=== PATIENT | male | born 1965 | race Caucasian/White ===

== ENCOUNTER 2016-09-23 08:18 | Inpatient (IN) | payer OTHER ==
[~2016-09-23] VITALS: Ht 180.3 cm; Wt 81.8 kg
[~2016-09-23 08:18] MED LIST: ASPI-556 PO; INSLAN SQ; MULT-1192 PO; OMEP10 PO
[2016-09-23 08:26] LABS: GLUCOSE,POINT OF CARE 468 MG/DL (70-110)
[2016-09-23] MEDS ORDERED: GLIP5 PO (08:31)
[2016-09-23] MEDS ORDERED: INSNOV SQ (08:31)
[2016-09-23] MEDS ORDERED: SITA50 PO (08:31)
[2016-09-23] MEDS ORDERED: IPRATROPIUM BROMIDE 0.5 MG/2.5 ML NEB SOLUTION NEB ONE ×2 (09:15→11:30)
[2016-09-23] MEDS ORDERED: ALBUTEROL SULFATE 2.5 MG/0.5 ML NEB SOLUTION NEB ONE (09:15)
[2016-09-23 09:23] LABS: BASOPHILS % (AUTO) 0.5 % (0.0-2.0); EOSINOPHILS # (AUTO) 0.01 K/uL (0.00-0.70); EOSINOPHILS % (AUTO) 0.04 % (1.0-6.0); HEMOGLOBIN 13.8 g/dL (13.5-17.5); LYMPHOCYTES # (AUTO) 1.7 K/uL (1.0-4.8); LYMPHOCYTES % (AUTO) 7.8 % (22.0-44.0); MEAN CORPUSCULAR HEMOGLOBIN 28.5 pg (26.0-34.0); MEAN CORPUSCULAR HGB CONC 33.6 G/dL (31.0-37.0); MEAN CORPUSCULAR VOLUME 85 fL (80-100); MONOCYTES # (AUTO) 1.1 K/uL (0.1-1.0); MONOCYTES % (AUTO) 5.1 % (2.0-9.0); NEUTROPHILS # (AUTO) 19.4 K/uL (1.8-7.7); PLATELET COUNT (AUTO) 217 K/uL (150-450); RED BLOOD CELL COUNT(AUTO) 4.83 MIL/uL (4.50-5.90); RED CELL DISTRIBUTION WIDTH 13.4 % (11.5-14.5); WHITE BLOOD COUNT (AUTO) 22.3 K/uL (4.5-11.0)
[2016-09-23 09:25] LABS: NEUTROPHILS % (AUTO) 86.7 % (40.0-70.0); RBC MORPHOLOGY COMMENT NORMAL RBC MORPH
[2016-09-23 09:28] LABS: GLUCOSE,POINT OF CARE 439 MG/DL (70-110)
[2016-09-23 09:41] LABS: ALBUMIN 3.1 g/dL (3.4-5.0); BILIRUBIN,TOTAL 1.5 mg/dL (0.1-1.0); CALCIUM, TOTAL 9.2 mg/dL (8.8-10.5); CREATININE 2.38 mg/dL (0.60-1.30); POTASSIUM 4.4 mmol/L (3.5-5.1); TOTAL PROTEIN, SERUM 8.1 g/dL (6.4-8.2)
[2016-09-23] MEDS ORDERED: INSULIN REGULAR, HUMAN 100 UNITS/ML SQ ONE (10:00)
[2016-09-23] MEDS ORDERED: SODIUM CHLORIDE 0.9% 1,000 ML IV ONE ×3 (10:00→12:15)
[2016-09-23 11:27] LABS: GLUCOSE,POINT OF CARE 411 MG/DL (70-110)
[2016-09-23] MEDS ORDERED: ALBUTEROL SULFATE 5 MG/ML 20 ML NEB SOLN [BULK] NEB ONE (11:30)
[2016-09-23] MEDS ORDERED: AZITHROMYCIN 500 MG/NS 250 ML IV ONE (12:15)
[2016-09-23] MEDS ORDERED: CefTRIAXone 1 GM/DEXTROSE 50 ML IV ONE (12:15)
[2016-09-23 12:47] LABS: APPEARANCE,URINE CLEAR (CLEAR); GLUCOSE, URINE (UA) >=1000 mg/dL (NEGATIVE); KETONES,URINE NEGATIVE (NEGATIVE); LEUKOCYTE ESTERASE ,URINE NEGATIVE (NEGATIVE); OCCULT BLOOD,URINE SMALL (NEGATIVE); PH,URINE 5.5 (5.0-8.0); PROTEIN,URINE POS 1+ (NEGATIVE)
[2016-09-23 12:51] LABS: RBC,URINE 0-2 /HPF (0-2); SQUAMOUS EPITHELIAL CELL,UR Few /LPF (None Seen); WBC,URINE 0-2 /HPF (0-5)
[2016-09-23 13:18] LABS: LACTIC ACID 3.2 mmol/L (0.4-2.0)
[2016-09-23 14:29] LABS: REFLEX LACTIC ACID? YES YES
[2016-09-23 14:42] LABS: GLUCOSE COMMENT 1 Doctor Notified; GLUCOSE,POINT OF CARE 357 MG/DL (70-110)
[2016-09-23 16:01] LABS: GLUCOSE COMMENT 1 Doctor Notified; GLUCOSE,POINT OF CARE 310 MG/DL (70-110)
[2016-09-23] MEDS ORDERED: DEXTROSE 50%-WATER 25 GM/50 ML SYRINGE IVP PRN (16:30)
[2016-09-23] MEDS: INSULIN REGULAR, HUMAN 100 UNITS/ML SQ PRN ×2 (17:20→21:57)
[2016-09-23 17:22] LABS: GLUCOSE,POINT OF CARE 292 MG/DL (70-110)
[2016-09-23] MEDS: ACETAMINOPHEN 325 MG TABLET PO PRN ×2 (19:05→21:05)
[2016-09-23] MEDS ORDERED: ONDANSETRON HCL 4 MG/2 ML VIAL IVP PRN (19:30)
[2016-09-23] MEDS ORDERED: SODIUM CHLORIDE 0.9% 1,000 ML IV SCH (19:30)
[2016-09-23] MEDS ORDERED: OxyCODONE HCL/ACETAMINOPHEN 5-325 MG TABLET PO PRN ×2 (19:30)
[2016-09-23] MEDS ORDERED: 0.9% SODIUM CHLORIDE 10 ML SYRINGE IVP PRN (19:30)
[2016-09-23] MEDS: PANTOPRAZOLE SODIUM 40 MG/VIAL IVP SCH (19:48)
[2016-09-23] MEDS: SODIUM CHLORIDE 0.9% 1,000 ML IV SCH (19:49)
[2016-09-23 20:22] LABS: GLUCOSE,POINT OF CARE 192 MG/DL (70-110)
[2016-09-23] MEDS: DOCUSATE SODIUM 100 MG CAPSULE PO SCH (21:05)
[2016-09-23 21:17] VITALS: BP 98/56
[2016-09-23] MEDS: INSULIN DETEMIR 100 UNITS/ML SQ SCH (21:53)
[2016-09-23] MEDS: ASPIRIN 81 MG EC TABLET PO SCH (21:54)
[2016-09-23 23:34] VITALS: BP 132/70
[2016-09-24] MEDS ORDERED: DEXTROSE 50%-WATER 25 GM/50 ML SYRINGE IVP PRN (00:30)
[2016-09-24 04:55] VITALS: BP 111/64
[2016-09-24] MEDS: SODIUM CHLORIDE 0.9% 1,000 ML IV SCH ×2 (05:26→13:38)
[2016-09-24 06:39] LABS: HEMATOCRIT 35.7 % (41-53); HEMOGLOBIN 12.2 g/dL (13.5-17.5); MEAN CORPUSCULAR HEMOGLOBIN 29.1 pg (26.0-34.0); MEAN CORPUSCULAR HGB CONC 34.2 G/dL (31.0-37.0); MEAN CORPUSCULAR VOLUME 85 fL (80-100); PLATELET COUNT (AUTO) 209 K/uL (150-450); RED BLOOD CELL COUNT(AUTO) 4.21 MIL/uL (4.50-5.90); RED CELL DISTRIBUTION WIDTH 13.5 % (11.5-14.5)
[2016-09-24 06:55] LABS: CALCIUM, TOTAL 8.8 mg/dL (8.8-10.5); CREATININE 1.66 mg/dL (0.60-1.30); POTASSIUM 3.4 mmol/L (3.5-5.1)
[2016-09-24] MEDS ORDERED: INFLUENZA VIRUS VACCINE QVS 2016-17 (3YR+)/PF 60 MCG/0.5 ML SYRINGE IM ONE (07:00)
[2016-09-24] MEDS ORDERED: -PHARMACY VACCINE NOTE- MISC ONE ×2 (07:00)
[2016-09-24 07:47] VITALS: BP 108/62
[2016-09-24] MEDS: DOCUSATE SODIUM 100 MG CAPSULE PO SCH ×2 (09:00→20:48)
[2016-09-24] MEDS: INSULIN DETEMIR 100 UNITS/ML SQ SCH ×2 (09:00→20:50)
[2016-09-24] MEDS: PANTOPRAZOLE SODIUM 40 MG/VIAL IVP SCH (10:10)
[2016-09-24] MEDS: ASPIRIN 81 MG EC TABLET PO SCH (10:10)
[2016-09-24] MEDS: GuaiFENesin/D-METHORPHAN [SUGAR-FREE] 200-20MG/10 ML SYRUP UDCUP PO PRN ×3 (10:13→22:57)
[2016-09-24 10:32] LABS: BAND NEUTROPHILS % (MANUAL) 28 % (1-5); LYMPHOCYTES % (MANUAL) 8 % (22-44); TOTAL CELLS COUNTED 100
[2016-09-24] MEDS ORDERED: POTASSIUM CHLORIDE 10 MEQ ER TABLET PO ONE ×2 (11:00→11:15)
[2016-09-24 11:34] VITALS: BP 110/63
[2016-09-24] MEDS: CefTRIAXone 1 GM/DEXTROSE 50 ML IV SCH (13:33)
[2016-09-24] MEDS: INSULIN ASPART 100 UNITS/ML SQ PRN ×3 (13:35→20:49)
[2016-09-24] MEDS: AZITHROMYCIN 500 MG/NS 250 ML IV SCH (15:25)
[2016-09-24 16:33] VITALS: BP 130/63
[2016-09-24 19:44] VITALS: BP 111/74
[2016-09-24 20:09] VITALS: BP 127/64
[2016-09-25 00:12] VITALS: BP 122/66
[2016-09-25] MEDS: SODIUM CHLORIDE 0.9% 1,000 ML IV SCH (05:04)
[2016-09-25 05:45] VITALS: BP 130/78
[2016-09-25 06:42] LABS: GLUCOSE,POINT OF CARE 136 MG/DL (70-110)
[2016-09-25 06:43] LABS: GLUCOSE COMMENT 1 Juice/Food/D50 Given; GLUCOSE,POINT OF CARE 55 MG/DL (70-110)
[2016-09-25 06:43] LABS: GLUCOSE,POINT OF CARE 152 MG/DL (70-110)
[2016-09-25 06:43] LABS: GLUCOSE COMMENT 1 Juice/Food/D50 Given; GLUCOSE,POINT OF CARE 45 MG/DL (70-110)
[2016-09-25 06:43] LABS: GLUCOSE COMMENT 1 Juice/Food/D50 Given; GLUCOSE,POINT OF CARE 63 MG/DL (70-110)
[2016-09-25 07:18] LABS: CALCIUM, TOTAL 9.5 mg/dL (8.8-10.5); CREATININE 1.37 mg/dL (0.60-1.30); MAGNESIUM 1.6 mg/dL (1.80-2.40); PHOSPHORUS 1.9 mg/dL (2.5-4.9); POTASSIUM 3.2 mmol/L (3.5-5.1)
[2016-09-25 07:32] VITALS: BP 144/65
[2016-09-25] MEDS: PANTOPRAZOLE SODIUM 40 MG/VIAL IVP SCH (08:49)
[2016-09-25] MEDS: ASPIRIN 81 MG EC TABLET PO SCH (08:51)
[2016-09-25] MEDS: INSULIN DETEMIR 100 UNITS/ML SQ SCH (09:00)
[2016-09-25] MEDS: DOCUSATE SODIUM 100 MG CAPSULE PO SCH (09:00)
[2016-09-25] MEDS: INSULIN ASPART 100 UNITS/ML SQ PRN ×2 (11:35→17:16)
[2016-09-25 11:42] VITALS: BP 141/72
[2016-09-25 11:42] LABS: GLUCOSE COMMENT 1 Received Meds; GLUCOSE,POINT OF CARE 268 MG/DL (70-110)
[2016-09-25] MEDS ORDERED: MAGNESIUM SULFATE 4 GM/WATER 100 ML IV PRN (14:45)
[2016-09-25] MEDS ORDERED: POTASSIUM CHL 10 MEQ/WATER 50 ML IV PRN (14:45)
[2016-09-25] MEDS ORDERED: MAGNESIUM SULFATE 2 GM in DEXTROSE 5%-WATER 50 ML IV PRN (14:45)
[2016-09-25] MEDS ORDERED: POTASSIUM CHLORIDE 20 MEQ ER TABLET PO PRN (14:45)
[2016-09-25] MEDS ORDERED: MAGNESIUM OXIDE 400 MG TABLET PO PRN (14:45)
[2016-09-25 14:52] LABS: ALBUMIN 2.3 g/dL (3.4-5.0)
[2016-09-25] MEDS: CefTRIAXone 1 GM/DEXTROSE 50 ML IV SCH (14:56)
[2016-09-25 15:25] VITALS: BP 114/59
[2016-09-25] MEDS: AZITHROMYCIN 500 MG/NS 250 ML IV SCH (15:38)
[2016-09-25 16:37] LABS: BASOPHILS % (AUTO) 0.2 % (0.0-2.0); EOSINOPHILS % (AUTO) 0.5 % (1.0-6.0); HEMATOCRIT 35.6 % (41-53); HEMOGLOBIN 11.6 g/dL (13.5-17.5); LYMPHOCYTES # (AUTO) 1.6 K/uL (1.0-4.8); MEAN CORPUSCULAR HEMOGLOBIN 27.9 pg (26.0-34.0); MEAN CORPUSCULAR HGB CONC 32.5 G/dL (31.0-37.0); MEAN CORPUSCULAR VOLUME 86 fL (80-100); NEUTROPHILS # (AUTO) 11.9 K/uL (1.8-7.7); NEUTROPHILS % (AUTO) 81.3 % (40.0-70.0); PLATELET COUNT (AUTO) 293 K/uL (150-450); RED BLOOD CELL COUNT(AUTO) 4.14 MIL/uL (4.50-5.90); RED CELL DISTRIBUTION WIDTH 13.8 % (11.5-14.5); WHITE BLOOD COUNT (AUTO) 14.7 K/uL (4.5-11.0)
[2016-09-25 16:45] LABS: CALCIUM, TOTAL 9.4 mg/dL (8.8-10.5); CREATININE 1.29 mg/dL (0.60-1.30); POTASSIUM 4.1 mmol/L (3.5-5.1)
[2016-09-25 17:47] LABS: GLUCOSE COMMENT 1 Received Meds; GLUCOSE,POINT OF CARE 165 MG/DL (70-110)
[2016-09-25 20:04] VITALS: BP 133/75
[2016-09-25] MEDS ORDERED: INSULIN DETEMIR 100 UNITS/ML SQ SCH (21:00)
[2016-09-26 11:57] LABS: GLUCOSE COMMENT 1 Received Meds; GLUCOSE,POINT OF CARE 191 MG/DL (70-110)
[2016-09-26 11:58] LABS: GLUCOSE COMMENT 1 Received Meds; GLUCOSE,POINT OF CARE 186 MG/DL (70-110)
[2016-09-26 11:58] LABS: GLUCOSE,POINT OF CARE 145 MG/DL (70-110)
[2016-09-26 11:58] LABS: GLUCOSE,POINT OF CARE 78 MG/DL (70-110)
[2016-09-26 11:58] LABS: GLUCOSE COMMENT 1 Received Meds; GLUCOSE,POINT OF CARE 137 MG/DL (70-110)
== END 2016-09-25 20:00 | disposition left against medical advice (07) | DRG 720 ==
LOC: EMS 08:19 → 5N 20:31 → 6N 09-24 20:00
PROVIDERS: ADMIT Internal Medicine; ATTEND Internal Medicine
DX: A41.9 Sepsis, unspecified organism (principal); N17.9 Acute kidney failure, unspecified; E44.0 Moderate protein-calorie malnutrition; J18.1 Lobar pneumonia, unspecified organism; E11.22 Type 2 diabetes mellitus with diabetic chronic kidney disease; E87.1 Hypo-osmolality and hyponatremia; N18.9 Chronic kidney disease, unspecified; E11.65 Type 2 diabetes mellitus with hyperglycemia; E78.00 Pure hypercholesterolemia, unspecified; I12.9 Hypertensive chronic kidney disease with stage 1 through stage 4 chronic kidney disease, or unspecified chronic kidney disease; E78.5 Hyperlipidemia, unspecified; E87.6 Hypokalemia; N13.30 Unspecified hydronephrosis; F17.210 Nicotine dependence, cigarettes, uncomplicated; Z79.4 Long term (current) use of insulin; Z79.899 Other long term (current) drug therapy; Z79.82 Long term (current) use of aspirin; Z79.84 Long term (current) use of oral hypoglycemic drugs; Z68.25 Body mass index [BMI] 25.0-25.9, adult; N20.0 Calculus of kidney
CPT/HCPCS: 76770; 82570; 82962; 83036; 83605; 83735; 84100; 84132; 84156; 84300; 84540; 87040; 94640; 94644; 96361; 96365; 96366; 96368; 96372; 99285; C9113; J0456; J0696; J1815; J7030